=== PATIENT | male | born 1980 | race Caucasian/White ===

== ENCOUNTER 2021-11-09 01:23 | Emergency (ER) | payer BC ==
[~2021-11-09] VITALS: Ht 162.6 cm; Wt 88.0 kg
[2021-11-09] MEDS ORDERED: METHYLPREDNISOLONE SOD SUCC 125 MG/2 ML VIAL IV ONE (01:45)
[2021-11-09] MEDS ORDERED: EPINEPHRINE 1:1000 1 MG/ML AMP SUBCUT ONE (01:45)
[2021-11-09] MEDS ORDERED: DIPHENHYDRAMINE 50MG/ML VIAL IV ONE (01:45)
[2021-11-09] MEDS ORDERED: FAMOTIDINE 20MG/2ML VIAL IV ONE (01:45)
[2021-11-09] MEDS ORDERED: SODIUM CHLORIDE 0.9% 1,000 ML IV ONE (02:30)
[2021-11-09] MEDS ORDERED: P20 MT (04:03)
[2021-11-09] MEDS ORDERED: DIPH25CA83 PO (04:03)
[2021-11-09 04:30] VITALS: BP 118/80
== END 2021-11-09 04:36 | disposition home or self-care (01) ==
LOC: ER 01:23
DX: T78.40XA Allergy, unspecified, initial encounter (principal); X58.XXXA Exposure to other specified factors, initial encounter
CPT/HCPCS: 87070; 87430; 96361; 96372; 96374; 96375; 99284; J1200; J2930; J3490